=== PATIENT | female | born 1980 | race Two or more races ===

== ENCOUNTER 2018-12-14 13:07 | Emergency (ER) | payer OTHER ==
[~2018-12-14] VITALS: Ht 157.5 cm; Wt 83.9 kg
[~2018-12-14 13:07] MED LIST: PHENERGAN25 MG; PROMETRIUM200 MG
== END 2018-12-14 17:49 | disposition home or self-care (01) ==
LOC: ER 13:07
DX: R42 Dizziness and giddiness (principal)

== ENCOUNTER 2020-10-13 03:06 | Emergency (ER) | payer OTHER ==
[~2020-10-13] VITALS: Ht 157.5 cm; Wt 86.2 kg
[2020-10-13] MEDS ORDERED: KETO10TA2 PO (07:39)
[2020-10-13] MEDS ORDERED: BACTRIM DS TAB1 EACH PO (07:39)
[2020-10-24] MEDS ORDERED: ACETAMINOPHEN650 M2 (06:39)
== END 2020-10-13 08:01 | disposition home or self-care (01) ==
LOC: ER 03:06
DX: N39.0 Urinary tract infection, site not specified (principal)

== ENCOUNTER → 2020-10-15 14:53 | Outpatient (CLI) | payer OTHER ==
[~2020-10-15 14:53] MED LIST changes: +ACETAMINOPHEN650 M2; +BACTRIM DS TAB1 EACH PO; +KETO10TA2 PO
== END | disposition home or self-care (01) ==
LOC: LAB 14:53
PROVIDERS: ATTEND Specialist
DX: E03.8 Other specified hypothyroidism (principal); D50.8 Other iron deficiency anemias; R10.84 Generalized abdominal pain; N39.0 Urinary tract infection, site not specified

== ENCOUNTER 2020-10-22 08:53 | Outpatient (CLI) | payer OTHER ==
[~2020-10-22 08:53] MED LIST changes: -ACETAMINOPHEN650 M2
[2020-10-24] MEDS ORDERED: ACETAMINOPHEN650 M2 (06:39)
== END 2020-10-22 09:09 | disposition home or self-care (01) ==
LOC: SONOGRAMA 08:53
PROVIDERS: ATTEND Specialist
DX: E04.8 Other specified nontoxic goiter (principal); R10.2 Pelvic and perineal pain

== ENCOUNTER 2020-10-26 08:15 | Outpatient (CLI) | payer OTHER ==
[~2020-10-26 08:15] MED LIST changes: +ACETAMINOPHEN650 M2
== END 2020-10-26 08:29 | disposition home or self-care (01) ==
LOC: MRI 08:15
PROVIDERS: ATTEND Specialist
DX: R10.84 Generalized abdominal pain (principal); R10.2 Pelvic and perineal pain
CPT/HCPCS: 72196; 74182